=== PATIENT | female | born 1945 | race Hispanic/Latino ===

== ENCOUNTER 2020-11-01 06:30 | Day surgery (SDC) | payer MEDICARE ==
--- NOTE | 2020-10-30 14:28 | Anesthesia Consultation ---
Anesthesia Consult and Med Hx Date of service: 10/30/20 - Airway Anesthetic Teeth Evaluation: Good (multiple implants), Bridges - Pre-Operative Health Status ASA Pre-Surgery Classification: ASA3 Proposed Anesthetic Plan: General Nerve Block: PEC - Pulmonary Hx Smoking: Yes (Past 20 pack/year hx, quit 20 years ago) - Cardiovascular System Hx Hypertension: Yes Hx Coronary Artery Disease: No (high cholesterol) - Central Nervous System Hx Psychiatric Problems: Yes (schizophrenia, bipolar disorder) - Other Systems Hx Cancer: Yes (breast CA) - Additional Comments Anesthesia Medical History Comments: Patient states that she was diagnosed with brain aneurysm and aortic aneurysm, although cannot provide any history of those condition or their record. Seen and clear by performing arts technicians prior to this visit. Will be continue to investigate this matter
[~2020-11-01 06:30] MED LIST: ACETAMINOPHEN 500 MG TAB PO SCH
[2020-11-01] MEDS ORDERED: FAMOTIDINE 20 MG/2 ML INJ IV NR (07:00)
[2020-11-01] MEDS ORDERED: MIDAZOLAM 2 MG/2 ML INJ IV NR (07:00)
[2020-11-01] MEDS ORDERED: CELECOXIB 200 MG CAP PO NR (07:00)
[2020-11-01] MEDS ORDERED: fentaNYL 100 MCG/2 ML INJ IV NR (07:00)
[2020-11-01] MEDS ORDERED: LACTATED RINGERS 1,000 ML IV SCH (07:00)
[2020-11-01] MEDS ORDERED: GABAPENTIN 500 MG/10 ML ORAL LIQD PO NR (07:00)
[2020-11-01] MEDS ORDERED: propofoL 200 MG/20 ML VIAL IV ONE (07:07)
[2020-11-01] MEDS ORDERED: LIDOCAINE MPF (2%) 20 MG/1 ML VIAL 5 ML ONE (07:08)
[2020-11-01] MEDS ORDERED: BUPIVACAINE/PF (0.25%) 2.5 MG/ML 30 ML VIAL INFILTRATI ONE ×2 (07:13→07:41)
[2020-11-01] MEDS ORDERED: LIDOCAINE-MPF (1%) 10 MG/1 ML VIAL 5 ML ONE (07:15)
[2020-11-01] MEDS ORDERED: ROCURONIUM 50 MG/5 ML INJ IV ONE (07:33)
[2020-11-01] MEDS ORDERED: ONDANSETRON 4 MG/2 ML INJ ONE (07:33)
[2020-11-01] MEDS ORDERED: HYDROmorphone 1 MG/1 ML INJ ONE (07:34)
[2020-11-01] MEDS ORDERED: LIDOCAINE (1%) 10 MG/1 ML VIAL 20 ML MDV ONE ×2 (07:39→07:41)
[2020-11-01] MEDS ORDERED: METHYLENE BLUE 50 MG/10 ML AMP ONE (07:40)
[2020-11-01] MEDS ORDERED: BUPIVACAINE-EPINEPHRINE/PF 0.5%-1:200,000 (30 ML) VIAL INFILTRATI ONE (07:46)
[2020-11-01] MEDS ORDERED: dexAMETHasone 4 MG/ML VIAL ONE (07:46)
[2020-11-01] MEDS ORDERED: ACETAMINOPHEN 325 MG/10.15 ML ORAL LIQD UNIT DOSE PO NR (08:00)
--- NOTE | 2020-11-01 08:36 | Anesthesia Day of Surgery ---
Anesthesia Day of Surgery - Day of Surgery Patient Examined: Yes Patient H&P Reviewed: Yes Patient is NPO: Yes Beta Blockers: Yes (coreg today AM)
--- NOTE | 2020-11-01 08:37 | Progress Note ---
Regional Anesthesia Block - Regional Anesthesia Block Start Time: 08:24 Stop Time: :29 Performed By:: ALYSHA SAEZ Procedure: [Right] Ultrasound Guided PEC Block Pt IDd, consent obtained, time out performed. Pt on monitor + O2 via NC, VS stable, sedation given per pre-op RN. Sterile prep. Landmarks identified with ultrasound. [2]cc skin wheel with 1% lidocaine. Needle advance in plane with ultrasound. [30]cc [0.5]% bupivacaine [w/ epi] + [4]mg decadron injected incrementally with negative aspiration. Pt tolerated procedure well, no immediate complications noted.
[2020-11-01] MEDS ORDERED: ePHEDrine SULFATE 50 MG/1 ML INJ ONE (08:54)
[2020-11-01] MEDS ORDERED: ONDANSETRON 4 MG/2 ML INJ IV PRN (09:00)
[2020-11-01] MEDS ORDERED: fentaNYL 100 MCG/2 ML INJ IV PRN (09:00)
--- NOTE | 2020-11-01 09:10 | Mammography Report ---
MAMMOGRAPHIC GUIDED RIGHT BREAST NEEDLE LOCALIZATION, 11/01/2020 CLINICAL INFORMATION / INDICATION: RT BREAST CANCER. COMPARISON: Diagnostic right mammogram 09/06/2020 PROCEDURE: Risks, benefits and indications to the procedure were discussed with the patient. The patient agreed to proceed with both verbal and written consent. A timeout procedure was performed with 2 patient murphy ntifiers. The breast was prepped with betadine in the usual sterile fashion. Approximately 5 cc of Lidocaine 1% was used for local anesthesia. Under direct digital mammographic guidance, a localization wire was p laced in satisfactory position with distal tip traversing the targeted lesion. Post-biopsy mammogram confirms satisfactory positioning of the localization wire. The wire was secured to the skin with a s terile dressing. The patient tolerated procedure without difficulty. No complications were encountered. IMPRESSION: 1. Satisfactory mammographic guided wire localization of the right breast lesion/clip. Signer Name: Andres Harris Jr, MD Signed: 11/01/2020 9:05 AM Workstation Name: [id number]
[2020-11-01] MEDS ORDERED: VANCOMYCIN/NS 1 GM/250 ML 1 GM/250 ML BAG IV NR (09:12)
[2020-11-01] MEDS ORDERED: METHYLENE BLUE 50 MG/10 ML AMP IRRIGATION ONE (10:12)
[2020-11-01] MEDS ORDERED: WATER FOR IRRIG STERILE 1,500 ML BOTTLE IR ONE (10:12)
[2020-11-01] MEDS ORDERED: LACTATED RINGERS 1,000 ML ONE (11:31)
--- NOTE | 2020-11-01 11:32 | Short Stay Summary ---
Short Stay Documentation Date of service: 11/01/20 - History H&P: obtained from office - Allergies and Medications Current Medications: Allergies ciprofloxacin Allergy (Verified 10/25/20 11:28) Unknown clindamycin Allergy (Verified 10/25/20 11:28) Unknown Sulfa (Sulfonamide Antibiotics) Allergy (Verified 10/25/20 11:28) Unknown Home Medications Medication Instructions Recorded Confirmed Last Taken Type Aspirin [Adult Aspirin] 81 mg PO DAILY 10/31/20 10/31/20 10/26/20 History AtorvaSTATin [Lipitor] 40 mg PO QHS 10/31/20 11/01/20 10/31/20 20:00 History Doxepin [SINEquan] 40 mg PO QHS 10/31/20 11/01/20 10/31/20 20:00 History Gabapentin [Neurontin] 300 mg PO BID 10/31/20 11/01/20 10/31/20 17:00 History LORazepam [Ativan] 1 mg PO TID PRN 10/31/20 10/31/20 Unknown History Lurasidone HCl [Latuda] 1 tab PO QAM 10/31/20 11/01/20 10/31/20 09:00 History NIFEdipine [Nifedipine ER] 1 tab PO DAILY 10/31/20 11/01/20 11/01/20 04:00 History Pantoprazole [Protonix] 40 mg PO QDAY 10/31/20 11/01/20 11/01/20 04:00 History Primidone [Mysoline] 300 mg PO HS 10/31/20 11/01/20 10/31/20 20:00 History Quetiapine Fumarate [SEROquel XR] 150 mg PO HS 10/31/20 11/01/20 10/31/20 20:00 History Rizatriptan Benzoate [Rizatriptan] 10 mg PO Q2H PRN 10/31/20 10/31/20 Unknown History Solifenacin Succinate [Vesicare] 10 mg PO DAILY 10/31/20 11/01/20 10/31/20 09:00 History Topiramate [Topamax] 50 mg PO QAM 10/31/20 11/01/20 10/31/20 09:00 History Topiramate [Topamax] 100 mg PO HS 10/31/20 11/01/20 10/31/20 20:00 History carvediloL [Coreg] 25 mg PO BID 10/31/20 11/01/20 11/01/20 04:00 History lamoTRIgine [LaMICtal] 100 mg PO BID 10/31/20 11/01/20 10/31/20 19:00 History oxyCODONE /ACETAMINOPHEN [Percocet 1 tab PO Q6HR PRN #15 tablet 11/01/20 Unknown Rx 5/325] Active Medications Acetaminophen (Acetaminophen 500 Mg Tab) 1,000 mg PO PREOP MANJIT Stop: 11/01/20 23:59 Last Admin: 11/01/20 07:15 Dose: 500 mg Documented by: Acetaminophen (Acetaminophen 325 Mg/10.15 Ml Oral Liqd Unit Dose) 500 mg PO PREOP NR Stop: 11/01/20 23:00 Last Admin: 11/01/20 07:30 Dose: 500 mg Documented by: Celecoxib (Celecoxib 200 Mg Cap) 200 mg PO PREOP NR Stop: 11/01/20 23:59 Last Admin: 11/01/20 07:15 Dose: 200 mg Documented by: Famotidine (Famotidine 20 Mg/2 Ml Inj) 20 mg IV PREOP NR Stop: 11/01/20 23:59 Last Admin: 11/01/20 08:30 Dose: 20 mg Documented by: Fentanyl (Fentanyl 100 Mcg/2 Ml Inj) 100 mcg IV ONCE NR Stop: 11/01/20 23:59 Last Admin: 11/01/20 08:24 Dose: 100 mcg Documented by: Fentanyl (Fentanyl 100 Mcg/2 Ml Inj) 50 mcg IV Q5MIN PRN PRN Reason: Pain , Severe (7-10) Stop: 11/01/20 17:00 Gabapentin (Gabapentin 500 Mg/10 Ml Oral Liqd) 150 mg PO PREOP NR Stop: 11/01/20 23:59 Last Admin: 11/01/20 07:15 Dose: 150 mg Documented by: Lactated Ringer's (Lactated Ringers) 1,000 mls @ 100 mls/hr IV DIRECT MANJIT Last Admin: 11/01/20 08:20 Dose: 100 mls/hr Documented by: Vancomycin HCl (Vancomycin/Ns 1 Gm/250 Ml) 1 gm in 250 mls @ 166.667 mls/hr IV PREOP NR; Protocol Stop: 11/01/20 16:00 Midazolam HCl (Midazolam 2 Mg/2 Ml Inj) 2 mg IV PREOP NR Stop: 11/01/20 23:59 Last Admin: 11/01/20 08:24 Dose: 2 mg Documented by: Ondansetron HCl (Ondansetron 4 Mg/2 Ml Inj) 4 mg IV ONCE PRN PRN Reason: Nausea And Vomiting Stop: 11/01/20 17:00 - Brief post op/procedure progress note Date of procedure: 11/01/20 Pre-op diagnosis: Right breast cancer UOQ Post-op diagnosis: same Procedure: Right needle localization partial mastectomy and SLNB Anesthesia: GETA Findings: Right wire and clip present within radiograph specimen; x2 SLNs Surgeon: ALONZO LANDA Estimated blood loss: minimal Pathology: list (right partial mastectomy, x2 slns) Specimen disposition: to lab Condition: stable - Disposition Condition at discharge: Good Disposition: DC-01 TO HOME OR SELFCARE Short Stay Discharge Plan Activity: other (no heavy lifting) Diet: regular Wound: keep clean and dry (may shower in 48 hours; no baths; wear breast binder) Follow up with: ALONZO LANDA MD [Staff Physician] - 7 Days Prescriptions: oxyCODONE /ACETAMINOPHEN [Percocet 5/325] 1 tab PO Q6HR PRN #15 tablet PRN Reason: Pain
--- NOTE | 2020-11-01 11:38 | Operative Report ---
Operative Report Operative Report: November 01, 2020 Preoperative diagnosis: Right breast cancer of the upper outer quadrant Postoperative diagnosis: Same Procedure: Right needle localization partial mastectomy of the upper outer quadrant and SLNB Surgeon: Katharine Mederos MD [employer] Consultant: Lobo Mortensen MD Anesthesia: General Findings: Right wire and clip present within radiograph specimen; x2 SLN Complications: None EBL: Minimal Disposition: PACU in good condition Indications for operative procedure: This is a 74 year old lady with newly diagnosed right breast cancer of the upper outer quadrant, Stage IA [id number] ER/LA positive (IDCA around 9:00 position 10 cm from the nipple). Recommendations are to proceed with breast conservation. Radiology place a wire at area of cancer of IDCA at clip. She understands the role of adjuvant radiation therapy and Oncotype DX will be obtained by medical oncology. She wished to proceed with the above procedure. Procedure in detail: The patient was taken to radiology for wire placement for localization known area of cancer. Anesthesia placed right pectoral block. Patient was then taken to the operating room. Gen. anesthesia was administered. The right nipple was injected with radioisotope. Right breast and axilla were prepped and draped in the normal sterile operative fashion. The wire was identified. Timeout was performed. Gamma probe was inserted into the axilla. The area of hot spot was identified. A right axillary incision was made with a 15 blade knife with dissection taken down to the subcutaneous tissues. The axillary fascia was opened with the Bovie cautery. 2 SLNs were identified. All remaining counts were less than 10% of the highest count. Lymph node was sent to pathology for permanent processing. Hemostasis was obtained in the right axillary cavity. Axillary cavity was appropriately irrigated and suctioned. Hemostasis was noted. Axillary fascia was approximated and closed using interrupted 3-0 Vicryl and the skin brought together and closed using a running 4-0 Monocryl followed by skin affix. Attention was then taken towards the right breast. Ultrasound was used as well with findings of small irregular mass around 9:00 position 10 cm FN. A lateral breast incision was made with a 15 blade knife and dissection taken down to subcutaneous tissues. First began raising of the superior flap with removal of the wires from the skin with dissection take down past the wire and posteriorly to the pectoralis muscle, followed by raising of the inferior flap, medial flap and lateral flap with all flaps taken past the wire and posteriorly down to the pectoralis muscle. The breast area of concern was appropriately removed posteriorly from the pectoralis muscle with the aid of the Bovie cautery. The wire was not encountered. Specimen was examined using ultrasound and given concerns of anterior margin close to tumor, proceeded with revised anterior margin of around 1.5 cm of additional breast tissue. Specimen was marked and then sent to pathology and radiology; radiograph specimen with wire and clip present. Breast cavity was irrigated and hemostasis was obtained. The posterior deep breast tissues were approximated and closed using interrupted 3-0 Vicryl. The subcutaneous tissues were approximated and closed using interrupted 3-0 Vicryl followed by closing of the skin with a running 4-0 Monocryl and skin affix. The patient tolerated surgery very well and she was awaken from anesthesia without any complication and transported to PACU in good condition.
--- NOTE | 2020-11-01 12:08 | Mammography Report ---
Right breast surgical specimen. INDICATION: Right breast wire localization.. COMPARISON: 09/06/2020. FINDINGS: Single specimen radiograph is submitted. The specimen radiograph contains the biopsy marker located centrally within the specimen. IMPRESSION: Single right breast surgical specimen documenting biopsy marker located centrally within the specimen . Signer Name: Mitch Short MD Signed: 11/01/2020 12:03 PM Workstation Name: [id number]
[2020-11-01 12:30] VITALS: BP 125/64
--- NOTE | 2020-11-01 13:17 | Post Anesthesia Evaluation ---
- Post Anesthesia Evaluation Patient Participated: Yes Airway Patent: Yes Stable Respiratory Function: Yes Nausea/Vomiting: No Temp > 96.8F: Yes Pain Manageable: Yes Adequeate Hydration: Yes Anesthesia Complications: No
== END 2020-11-01 13:15 | disposition home or self-care (01) ==
LOC: OR 06:30
PROVIDERS: ATTEND Surgery
DX: C50.411 Malignant neoplasm of upper-outer quadrant of right female breast (principal); I89.8 Other specified noninfective disorders of lymphatic vessels and lymph nodes; G43.909 Migraine, unspecified, not intractable, without status migrainosus; E78.00 Pure hypercholesterolemia, unspecified; I10 Essential (primary) hypertension; K21.9 Gastro-esophageal reflux disease without esophagitis; F31.9 Bipolar disorder, unspecified; Z86.19 Personal history of other infectious and parasitic diseases; Z88.2 Allergy status to sulfonamides; Z88.8 Allergy status to other drugs, medicaments and biological substances; Z79.899 Other long term (current) drug therapy; Z79.82 Long term (current) use of aspirin; Z87.891 Personal history of nicotine dependence; Z90.710 Acquired absence of both cervix and uterus; Z98.890 Other specified postprocedural states; Z90.721 Acquired absence of ovaries, unilateral
CPT/HCPCS: 19281; 19301; 38525; 38792; 76098; 78800; 88305; 88307; 88341; 88342; A4648; A9541; J1100; J1170; J2250; J2405; J2704; J3010; J3370; J7120; Q9968; U0003; 64450